=== PATIENT | female | born 1990 | race African-American/Black ===

== ENCOUNTER 2016-06-07 13:54 | Emergency (ER) | payer MEDICARE ==
[2016-06-07 16:16] LABS: APPEARANCE CLEAR (CLEAR); BILIRUBIN NEGATIVE (NEGATIVE); COLOR YELLOW (YELLOW); GLUCOSE NEGATIVE (NEGATIVE); KETONE NEGATIVE (NEGATIVE); LEUKOCYTE ESTERASE NEGATIVE (NEGATIVE); NITRITE NEGATIVE (NEGATIVE); PROTEIN NEGATIVE (NEGATIVE); UROBILINOGEN NORMAL (NORMAL)
[2016-06-07 16:28] LABS: BASOPHILS 0.3 % (0.0-2.0); HEMOGLOBIN 10.3 g/dL (12-16); IMMATURE GRANULOCYTES 0.1 % (0-5); LYMPHOCYTES 44.4 % (15-50); MCHC 32.2 g/dL (31.0-37.0); MCV 93.3 fL (80.0-100.0); MEAN PLATELET VOLUME 10.3 fL (7.4-10.4); MONOCYTES 7.7 % (2-11); NEUTROPHILS 45.5 % (40-80); PLATELET COUNT 310 10x3/uL (130-400); RBC 3.43 10x6/uL (4.00-5.40); RDW 14.2 % (11.5-14.5); WBC 7.4 10x3/uL (4.8-10.8)
[2016-06-07 16:32] LABS: UDS - AMPHET NEGATIVE QUAL (NEGATIVE); UDS - BARB NEGATIVE QUAL (NEGATIVE); UDS - BENZO NEGATIVE QUAL (NEGATIVE); UDS - COCAINE NEGATIVE QUAL (NEGATIVE); UDS - METH NEGATIVE QUAL (NEGATIVE); UDS - OPIATE NEGATIVE QUAL (NEGATIVE); UDS - PCP NEGATIVE QUAL (NEGATIVE); UDS - THC NEGATIVE QUAL (NEGATIVE)
[2016-06-07 17:02] LABS: ALBUMIN 3.9 g/dL (3.4-5.0); ALKALINE PHOSPHATASE 52 U/L (46-116); ALT (SGPT) 17 U/L (10-68); BILIRUBIN - TOTAL 0.31 mg/dL (0.2-1.3); CALC OSMOLALITY 277 mosm/kg (275-300); CALCIUM 8.8 mg/dL (8.5-10.1); CARBON DIOXIDE 27.1 mmol/L (21.0-32.0); CHLORIDE - SERUM 102 mmol/L (98-107); CREATININE - SERUM 0.7 mg/dL (0.6-1.3); GLUCOSE 97 mg/dL (74-106); PROTEIN - SERUM 7.4 g/dL (6.4-8.2); SODIUM 140 mmol/L (136-145); UREA NITROGEN 10 mg/dL (7-18); eGFR NON AFRICAN AMERICAN > 90 mL/min (90-120)
[2016-07-28] MEDS ORDERED: NAPROSYN500 MG PO (14:51)
[2016-07-28] MEDS ORDERED: ACETAMINOPHEN500 M1 PO (14:52)
[2016-07-28] MEDS ORDERED: MECLIZINE HCL25 MG PO (14:52)
== END 2016-06-07 17:10 | disposition home or self-care (01) ==
LOC: D.ER 13:54
PROVIDERS: Nurse Practitioner Family
DX: R42 Dizziness and giddiness (principal); H66.91 Otitis media, unspecified, right ear; I10 Essential (primary) hypertension

== ENCOUNTER 2016-07-29 06:52 | Day surgery (SDC) | payer MEDICARE ==
[~2016-07-29] VITALS: Ht 154.9 cm; Wt 75.3 kg
--- NOTE | ~2016-07-29 | OP ---
PATIENT NAME: TAIWO MERRILL MEDICAL RECORD: [id number] :90 LOCATION:D[facility]OPS ADMISSION DATE: SURGEON: TARYN BACON MD DATE OF OPERATION: 07/29/2016 PREOPERATIVE DIAGNOSES: 1. Umbilical hernia. 2. Hypertension. POSTOPERATIVE DIAGNOSES: 1. Umbilical hernia. 2. Hypertension. PROCEDURE: Umbilical hernia repair without mesh. SURGEON: Taryn Bacon MD. REPORT OF PROCEDURE: The patient's abdomen was prepped and draped in sterile fashion. A semi-circular incision was made on the inferior aspect of the umbilicus. Electrocautery was used to dissect through the subcutaneous tissues. We came through the umbilical stalk. The patient had a small hernia defect, which totaled about 1 cm in greatest diameter. It was fat-containing and this fat was easily placed back in the abdominal cavity. We cleaned off the edges of the hernia defect and closed the defect transversely using interrupted 0 Prolenes times 4. These sutures were tacked down with 0 Vicryls. The umbilicus was then tacked down to the fascia using interrupted 0 Vicryl and the subcutaneous tissues were reapproximated with interrupted 0 Vicryls. The wound was then infused with a total of 10 mL of 0.25% Marcaine plain and the skin was closed with running subcutaneous 5-0 Monocryl. COMPLICATIONS: None. CONDITION: Stable. ANESTHESIA: General endotracheal and local. BLOOD LOSS: Minimal. TRANSINT:[id number] Voice Confirmation ID: [id number] DOCUMENT ID: [id number] TARYN BACON MD CC: MANINDER FISCHER DO [id number] DICTATION DATE: 07/29/16 1038 EVENT ORGANIZER: 07/29/16 1243 [place] [id number] [place] [id number]
[~2016-07-29 06:52] MED LIST: ACETAMINOPHEN500 M1 PO; MECLIZINE HCL25 MG PO; NAPROSYN500 MG PO
[2016-07-29 08:35] VITALS: BP 110/63; Ht 154.9 cm; Wt 75.3 kg
[2016-07-29 08:59] LABS: HCG URINE NEGATIVE (NEGATIVE)
[2016-07-29 09:02] LABS: HEMATOCRIT 33.7 % (36.0-48.0); HEMOGLOBIN 10.9 g/dL (12-16); MCH 30.2 pg (26.0-34.0); MCHC 32.3 g/dL (31.0-37.0); MCV 93.4 fL (80.0-100.0); MEAN PLATELET VOLUME 10.7 fL (7.4-10.4); PLATELET COUNT 284 10x3/uL (130-400); RBC 3.61 10x6/uL (4.00-5.40); RDW 14.2 % (11.5-14.5); WBC 5.9 10x3/uL (4.8-10.8)
[2016-07-29 09:16] LABS: CALC OSMOLALITY 272 mosm/kg (275-300); CALCIUM 8.5 mg/dL (8.5-10.1); CARBON DIOXIDE 27.7 mmol/L (21.0-32.0); CHLORIDE - SERUM 103 mmol/L (98-107); CREATININE - SERUM 0.9 mg/dL (0.6-1.3); GLUCOSE 99 mg/dL (74-106); POTASSIUM - SERUM 4.1 mmol/L (3.5-5.1); SODIUM 137 mmol/L (136-145); UREA NITROGEN 11 mg/dL (7-18); eGFR NON AFRICAN AMERICAN 80 mL/min (90-120)
[2016-07-29 10:30] LABS: ANISOCYTOSIS OCC; EOSINOPHILS 6 % (0-7); LYMPHOCYTES 53 % (15-50); MONOCYTES 6 % (2-11); NEUTROPHILS 35 % (40-80); PLATELET ESTIMATE NORMAL
[2016-07-29] MEDS ORDERED: DILAUDID2 MG PO (10:33)
--- NOTE | 2016-07-29 15:47 | NUR ---
1530 C/O PAIN AND NUSAEA AND DIZZINESS ZOFRAN 4 MG IV GIVEN FOR NAUSEA
--- NOTE | 2016-07-29 18:10 | NUR ---
1300 PATIENT DROWSY, C/O DIZZNESS AND NAUSEA 1400 DIZZNESS HAS PASSES , WAITING ON RIDE 1500 STILL WAITING ON RIDE 1530 C/O NAUSEA AND DIZZNESS AGAIN VS TAKEN 1700 IV DC WITH CATHER TIP INTACT 1800 PATIENT STATED THAT HER RIDE IS ON THE WAY, SHE DIDNT KNOW WHAT WAS GOING ON THEY SHOULD BE HERE
--- NOTE | 2016-07-29 18:38 | NUR ---
[facility] STILL NOT HERE , CALLED ER AND HOUSESUPERVIOR FOR A CAB TO TAKE [facility] HOME, TAKEN TO ER TO WAIT ON CAB
== END 2016-07-29 18:41 | disposition home or self-care (01) ==
LOC: D.OPS 06:52 → D.PAN 09:30 → D.OPS 10:30
PROVIDERS: Surgery
DX: K42.9 Umbilical hernia without obstruction or gangrene (principal); I10 Essential (primary) hypertension; Z01.812 Encounter for preprocedural laboratory examination

== ENCOUNTER 2016-12-13 16:05 | Emergency (ER) | payer MEDICARE | END 2016-12-13 22:06 | disposition home or self-care (01) | LOC: D.ER 16:05 | DX: J03.90 Acute tonsillitis, unspecified (principal); J02.9 Acute pharyngitis, unspecified; I10 Essential (primary) hypertension ==

== ENCOUNTER → 2017-03-23 11:15 | Outpatient (CLI) | payer MEDICARE ==
[2016-07-29 08:35] VITALS: BMI 31.4
[~2017-03-23 11:15] MED LIST changes: +DILAUDID2 MG PO
== END | disposition home or self-care (01) ==
LOC: D.US 11:15
DX: R10.9 Unspecified abdominal pain (principal); Z98.890 Other specified postprocedural states

== ENCOUNTER → 2017-11-04 09:57 | Outpatient (CLI) | payer MEDICARE ==
[2016-07-29 08:35] VITALS: BMI 31.4
== END | disposition home or self-care (01) ==
LOC: D.NM 10-27 09:00
DX: R14.0 Abdominal distension (gaseous) (principal); R10.13 Epigastric pain